=== PATIENT | male | born 1970 | race Two or more races ===

== ENCOUNTER 2025-01-02 14:27 | Emergency (ER) | payer MEDICAID, SELFPAY ==
[2025-01-02 14:36] VITALS: BP 129/85; PULSE 78; RESP 20; TEMP 36.8; O2SAT 96
--- NOTE | 2025-01-02 14:50 | EDNOTE_ITS ---
Upper Extremity Injury RME/HPI General Chief Complaint: Hand/Wrist Problems Stated Complaint: RIGHT INDEX FINGER TIP SNIPPED OFF WITH SCISSORS Time Seen by Provider: 01/02/25 14:33 Arrival date/time: 01/02/25 14:27 54-year-old male reports with complaints of a laceration to the right index finger. Patient states while using a saw he cut a piece of his finger he noticed a lot of bleeding which he was unable to control he tied a tourniquet and reported to the emergency department. He is on sure of last tetanus update but he believes is more than 20 years ago he denies numbness tingling or decreased range of motion or purulent discharge from the finger Limitations: no limitations Related Data Allergies Allergy/AdvReac Type Severity Reaction Status Date / Time No Known Allergies Allergy Verified 01/02/25 14:31 Past Medical History Past Medical History CARDIAC: Negative Congestive Heart Failure RESPIRATORY: Negative Chronic Obstructive Pulmonary Disease (COPD) GENITOURINARY: Negative Renal Disease ENDOCRINE: Negative Diabetes Mellitus Type 1 or Diabetes Mellitus Type 2 Social History SMOKING STATUS: Never smoker ED Exam General Limitations: Present no limitations General appearance: Present alert and in no apparent distress Extremities Exam Extremities exam: Present other (right index with 2 cm skin avulsion distal volar aspect, FROM, cap refill < 2 sec, strength 5/5 sensory intact, remainder of hand unremarkable) Neurological Exam Neurological exam: Present alert, oriented X3 and CN II-XII intact Psychiatric Psychiatric exam: Present normal affect and normal mood Skin Skin exam: Present warm, dry, intact and normal color Course Quality Measures none Orders Category Date Time Status Irrigate Wound NOW Care 01/02/25 14:50 Active TDap [Obtain Tdap Consent] X1 Care 01/02/25 14:50 Active Wound Care [Wound Care] NOW Care 01/02/25 14:50 Active TET,DIP/PERT AC (Adult)-Tdap [Boostrix Adult (Tdap) Med 01/02/25 15:11 Discontinued Vacc] 0.5 ml IMI .ONCE ONE Vital Signs Vital signs: Vital Signs Temperature 98.2 F 01/02/25 14:36 Pulse Rate 78 01/02/25 14:36 Respiratory Rate 20 01/02/25 14:36 Blood Pressure 129/85 H 01/02/25 14:36 Pulse Oximetry (%) 96 01/02/25 14:36 Oxygen Delivery Method Room Air 01/02/25 14:36 Procedures -ED Laceration Laceration 1: Site: hand (right little finger) Side (If applicable): right Size (cm): 2 Description: other (2 cm round skin avulsion distal phalanx volar aspect) Skin layer closed with: other (Surgicel applied clean dry dressing neurovascular intact) Extremity Injury Patient data External records reviewed:: None Clinical information provided by:: patient Social determinants that could affect healthcare access:: none Patient has the following chronic illnesses:: none How is presenting disease/condition affected by chronic disease/condition?: no chronic disease Evaluation data The following diagnostics were reviewed and interpreted by me:: other (specify) (none) Lab and/or radiology exams considered but not ordered:: n/a Interpretation Summary: n/a Medications / Prescriptions Medications or Prescriptions considered but not ordered:: n/a Medication administrations:: Medication Administration History Discontinued Medications Diphtheria/Tetanus/Acell Pertussis (Diphth,Pertuss(Acell),Tet Vac 0.5 Ml Syr- Adult) 0.5 ml IMi .ONCE ONE Stop: 01/02/25 15:12 as above Consultations Consultation(s) initiated? (list below): No Diagnosis Upper Extremity Injury Differential Diagnosis: other (finger laceration, open wound) Most likely diagnosis given after review of the tests above:: finger laceration Admission Indicated Admission indicated?: not indicated Admission Request Was there a request for admission?: No Disposition Plan Disposition Plan: Discharge Discharge Attestation Discharge Attestation: The patient and all family members were given an opportunity to ask questions and understood the discharge instructions. Discharge instructions specifically effects, indications for sooner follow up or return to the emergency department, and the expected course of current diagnosis. Patient condition: Stable Discharge Plan Plan Patient Disposition: HOME (Self Care) Problem List Clinical Impression: Finger laceration Patient/Caregiver Discharge Instructions Discharge Activity: activity as tolerated Education Materials: ED Laceration Small or ... Additional Instructions: Keep the dressings clean and dry you may remove it after 24 hours when removing the dressing soak the finger first and then remove the dressing do not rip off as it may cause bleeding again. Apply new clean dry dressing and with your primary care provider in 48 hours for a wound check Print Language: Bulgarian Stand Alone Forms: Angi Award Info., Patient Portal Info Letter Vaccines Vaccines Given During Stay: TDaP
[2025-01-02] MEDS: DIPHTH,PERTUSS(ACELL),TET VAC 0.5 ML SYR- ADULT IMi (15:43)
== END 2025-01-02 16:19 | disposition home or self-care (01) ==
LOC: SERX 15:54
PROVIDERS: Emergency Provider Family Medicine; PCP Family Medicine
DX: S61.216A Laceration without foreign body of right little finger without damage to nail, initial encounter (principal); W27.0XXA Contact with workbench tool, initial encounter; Z23 Encounter for immunization
CPT/HCPCS: 90471; 90715; 99282